=== PATIENT | male | born 1970 | race Two or more races ===

== ENCOUNTER 2017-03-22 09:11 | Emergency (ER) | payer BC, MEDICAID ==
[~2017-03-22] VITALS: Ht 170.2 cm; Wt 96.2 kg
[2017-03-22 09:23] VITALS: BP 149/81
== END 2017-03-22 10:03 | disposition home or self-care (01) ==
LOC: ER 09:11
DX: H10.32 Unspecified acute conjunctivitis, left eye (principal)